=== PATIENT | male | born 1960 | race Hispanic/Latino ===

== ENCOUNTER 2018-12-04 11:47 | Emergency (ER) | payer MEDICAID ==
[2018-12-04 13:28] LABS: Basophils % (Auto) 0.4 % (0.0-1.8); Eosinophils % (Auto) 0.4 % (0.0-4.3); Hematocrit 45.3 % (35.5-45.6); Lymphocytes # (Auto) 2.1 K/mm3 (1.2-5.4); Lymphocytes % (Auto) 23.4 % (13.4-35.0); Mean Corpuscular HGB Conc 33 % (32-34); Mean Corpuscular Volume 89 fl (84-94); Monocytes # (Auto) 1.2 K/mm3 (0.0-0.8); Monocytes % (Auto) 13.3 % (0.0-7.3); Platelet Count 187 K/mm3 (140-440); Red Blood Count 5.09 M/mm3 (3.65-5.03); Red Cell Distribution Width 14.8 % (13.2-15.2)
[2018-12-04 13:42] LABS: BUN/Creatinine Ratio 25; Blood Urea Nitrogen 10 mg/dL (9-20); Hemolysis Index 27
[2018-12-04 14:24] VITALS: BP 114/79
--- NOTE | 2018-12-04 14:37 | Emergency Department Report ---
ED Seizure HPI - General Chief Complaint: Seizure Stated Complaint: SEIZURES Time Seen by Provider: 12/04/18 12:47 Source: old records reviewed Mode of arrival: Stretcher Limitations: Other - History of Present Illness Initial Comments: 58-year-old male with a past medical history of seizures, MR, thyroid problems was nonverbal presents to the hospital with one of [facility]. Patient was at the adult day care center and staff reports that he had 3 seizures back to back. Patient has a history of [place] seizures. Careta ker states when he has seizures at the [facility] they wave a wand over his vagus stimulator. The day care center does not have a wand. Patient is on multiple seizure medication and has been compliant without any missed doses. Patient also wears a helmet due to frequent seizures. On average patient has one seizure a week. Last seizure was on November 30. Survey Superintendent states that patient is at his baseline mental status. - Related Data Home Medications Medication Instructions Recorded Confirmed Last Taken Cholecalciferol (Vitamin D3) 50,000 unit PO 1XW 01/01/14 12/04/18 12/04/18 08:00 [Vitamin D3] Docusate Sodium [Colace CAP] 100 mg PO BID PRN 01/01/14 12/04/18 12/04/18 08:00 Levothyroxine [Synthroid] 25 mcg PO QAM 01/01/14 12/04/18 12/04/18 08:00 Diazepam [Valium] 5 mg PO PRN PRN 09/27/14 12/04/18 Unknown levETIRAcetam [Keppra ORAL LIQ] 2,000 mg PO BID 09/27/14 12/04/18 12/04/18 08:00 2000 Divalproex Sprinkle [Depakote 750 mg PO BID 01/02/16 12/04/18 12/04/18 08:00 Sprinkle] carBAMazepine [TEGretol Oral Liq] 8 ml PO BID 01/02/16 12/04/18 12/04/18 08:00 Alendronate Sodium [Fosamax] 70 mg PO 1XW 12/04/18 12/04/18 Unknown Atorvastatin Calcium [Lipitor] 20 mg PO DAILY 12/04/18 12/04/18 12/04/18 08:00 Fenofibrate Nanocrystallized 145 mg PO HS 12/04/18 12/04/18 12/03/18 20:00 [Fenofibrate] [place]-3S/Dha/Epa/Fish Oil [[place]-3 1,000 mg PO BID 12/04/18 12/04/18 12/04/18 08:00 Fish Oil 1,000 mg Sfgl] Onfi 10 mg PO DAILY 12/04/18 12/04/18 12/04/18 08:00 Onfi 20 mg PO BID 12/04/18 12/04/18 12/04/18 08:00 VALPROIC ACID Liq 15 ml PO Q12HR 12/04/18 12/04/18 12/04/18 08:00 Allergies Allergy/AdvReac Type Severity Reaction Status Date / Time No Known Allergies Allergy Verified 01/01/14 21:48 ED Review of Systems ROS: Stated complaint: SEIZURES Other details as noted in HPI Comment: All other systems reviewed and negative ED Past Medical Hx - Past Medical History Hx Heart Attack/AMI: (??) Hx Congestive Heart Failure: No Hx Diabetes: No Hx Seizures: Yes Hx Asthma: No Hx COPD: No Additional medical history: Gracie MADDEN problems - Surgical History Past Surgical History?: Yes Additional Surgical History: vagal nerve stimulator. - Social History Smoking Status: Never Smoker - Medications Home Medications: Home Medications Medication Instructions Recorded Confirmed Last Taken Type Cholecalciferol (Vitamin D3) 50,000 unit PO 1XW 01/01/14 12/04/18 12/04/18 08:00 History [Vitamin D3] Docusate Sodium [Colace CAP] 100 mg PO BID PRN 01/01/14 12/04/18 12/04/18 08:00 History Levothyroxine [Synthroid] 25 mcg PO QAM 01/01/14 12/04/18 12/04/18 08:00 History Diazepam [Valium] 5 mg PO PRN PRN 09/27/14 12/04/18 Unknown History levETIRAcetam [Keppra ORAL LIQ] 2,000 mg PO BID 09/27/14 12/04/18 12/04/18 08:00 History 1999 Divalproex Sprinkle [Depakote 750 mg PO BID 01/02/16 12/04/18 12/04/18 08:00 His tory Sprinkle] carBAMazepine [TEGretol Oral Liq] 8 ml PO BID 01/02/16 12/04/18 12/04/18 08:00 History Alendronate Sodium [Fosamax] 70 mg PO 1XW 12/04/18 12/04/18 Unknown History Atorvastatin Calcium [Lipitor] 20 mg PO DAILY 12/04/18 12/04/18 12/04/18 08:00 History Fenofibrate Nanocrystallized 145 mg PO HS 12/04/18 12/04/18 12/03/18 20:00 History [Fenofibrate] [place]-3S/Dha/Epa/Fish Oil [[place]-3 1,000 mg PO BID 12/04/18 12/04/18 12/04/18 08:00 History Fish Oil 1,000 mg Sfgl] Onfi 10 mg PO DAILY 12/04/18 12/04/18 12/04/18 08:00 History Onfi 20 mg PO BID 12/04/18 12/04/18 12/04/18 08:00 History VALPROIC ACID Liq 15 ml PO Q12HR 12/04/18 12/04/18 12/04/18 08:00 History ED Physical Exam - General Limitations: Other - Other Other exam information: General: No limitations, patient is alert in no acute distress Head exam: Atraumatic, normocephalic Eyes exam: Normal appearance, pupils equal reactive to light, extraocular movements intact ENT: Moist mucous membrane Neck exam: Normal inspection, full range of motion, no meningismus nontender Respiratory exam: Clear to auscultation bilateral, no wheezes, rales, crackles Cardiovascular: Normal rate and rhythm Abdomen: Soft, nondistended, and nontender, with normal bowel sounds, no rebound, or guarding Extremity: Full range of motion normal inspection no deformity Back: Normal Inspection, full range of motion, no tenderness Neurologic: Alert, makes eye contact but patient is nonverbal. Moves all extremities, sensation grossly intact Psychiatric: normal affect, normal mood Skin: Warm, dry, intact ED Course Vital Signs 12/04/18 12/04/18 12:30 14:22 Temperature 98.2 F Pulse Rate 92 H 85 Respiratory 18 19 Rate Blood Pressure 126/94 Blood Pressure 126/94 114/79 [Right] O2 Sat by Pulse 90 93 Oximetry ED Medical Decision Making - Lab Data Result diagrams: 12/04/18 13:04 12/04/18 13:04 Lab Results 12/04/18 12/04/18 12/04/18 Range/Units 13:04 13:04 13:04 WBC 9.1 (4.5-11.0) K/mm3 RBC 5.09 H (3.65-5.03) M/mm3 Hgb 15.0 (11.8-15.2) gm/dl Hct 45.3 (35.5-45.6) % MCV 89 (84-94) fl MCH 30 (28-32) pg MCHC 33 (32-34) % RDW 14.8 (13.2-15.2) % Plt Count 187 (140-440) K/mm3 Lymph % (Auto) 23.4 (13.4-35.0) % [place] % (Auto) 13.3 H (0.0-7.3) % Eos % (Auto) 0.4 (0.0-4.3) % Baso % (Auto) 0.4 (0.0-1.8) % Lymph # 2.1 (1.2-5.4) K/mm3 [place] # 1.2 H (0.0-0.8) K/mm3 Eos # 0.0 (0.0-0.4) K/mm3 Baso # 0.0 (0.0-0.1) K/mm3 Seg Neutrophils % 62.5 (40.0-70.0) % Seg Neutrophils # 5.7 (1.8-7.7) K/mm3 Sodium 138 (137-145) mmol/L Potassium 4.2 (3.6-5.0) mmol/L Chloride 101.3 (98-107) mmol/L Carbon Dioxide 23 (22-30) mmol/L Anion Gap 18 mmol/L BUN 10 (9-20) mg/dL Creatinine 0.4 L (0.8-1.5) mg/dL Estimated GFR > 60 ml/min BUN/Creatinine Ratio 25 % Glucose 109 H (75-100) mg/dL POC Glucose (70-105) Calcium 9.0 (8.4-10.2) mg/dL Magnesium 1.90 (1.7-2.3) mg/dL Valproic Acid 68.2 (50-100) ug/mL 02/14/19 Range/Units 13:04 WBC (4.5-11.0) K/mm3 RBC (3.65-5.03) M/mm3 Hgb (11.8-15.2) gm/dl Hct (35.5-45.6) % MCV (84-94) fl MCH (28-32) pg MCHC (32-34) % RDW (13.2-15.2) % Plt Count (140-440) K/mm3 Lymph % (Auto) (13.4-35.0) % [place] % (Auto) (0.0-7.3) % Eos % (Auto) (0.0-4.3) % Baso % (Auto) (0.0-1.8) % Lymph # (1.2-5.4) K/mm3 [place] # (0.0-0.8) K/mm3 Eos # (0.0-0.4) K/mm3 Baso # (0.0-0.1) K/mm3 Seg Neutrophils % (40.0-70.0) % Seg Neutrophils # (1.8-7.7) K/mm3 Sodium (137-145) mmol/L Potassium (3.6-5.0) mmol/L Chloride (98-107) mmol/L Carbon Dioxide (22-30) mmol/L Anion Gap mmol/L BUN (9-20) mg/dL Creatinine (0.8-1.5) mg/dL Estimated GFR ml/min BUN/Creatinine Ratio % Glucose (75-100) mg/dL POC Glucose 97 (70-105) Calcium (8.4-10.2) mg/dL Magnesium (1.7-2.3) mg/dL Valproic Acid (50-100) ug/mL - Medical Decision Making Patient was observed in the ED for 3 hours without any further seizure activity. Depakote level is therapeutic. Patient encouraged to continue current seizure medication and follow up with his neurologist at [facility]. - Differential Diagnosis breakthrough seizure, electrolyte abnormality, medication noncompliance Critical Care Time: No Critical care attestation.: If time is entered above; I have spent that time in minutes in the direct care of this critically ill patient, excluding procedure time. ED Disposition Clinical Impression: Seizure Disposition: DC-01 TO HOME OR SELFCARE Is pt being admited?: No Does the pt Need Aspirin: No Condition: Stable Instructions: Epilepsy (ED) Additional Instructions: Follow-up with your neurologist. Return if symptoms worsen as indicated by your discharge instructions Referrals: ANN MARIE MCGARRY [Other] - 3-5 Days your, neurologist [Other] - 3-5 Days Time of Disposition: 14:49
== END 2018-12-04 15:37 | disposition home or self-care (01) ==
LOC: ED 11:47
DX: G40.409 Other generalized epilepsy and epileptic syndromes, not intractable, without status epilepticus (principal)
CPT/HCPCS: 36415; 80048; 80164; 82962; 83735; 85025; 99284

== ENCOUNTER 2018-12-25 11:51 | Inpatient (IN) | payer MEDICAID ==
[2018-12-25] MEDS ORDERED: KEPPRA 1,000 MG/NS 0.75% 100ML 1,000 MG/100 ML BAG IV ONE (12:08)
--- NOTE | 2018-12-25 12:12 | Emergency Department Report ---
HPI - General Time Seen by Provider: 12/25/18 12:01 - HPI HPI: 50-year-old male presents to the emergency department from his adult daycare program with the report of 5 witnessed seizures. Apparently the first one occurred in the process on the way to the daycare program. The patient had 4 seizures witnessed at the daycare program between 10:15 and 11:20 AM this soraida contreras. The patient has a diagnosis of profound mental retardation as well as a seizure disorder. He is on Keppra, onfi, carbamazepine and Depakote. Unknown if he received any medications for his symptoms prior to arrival. He also appears to have a history of hypothyroidism for which she takes levothyroid. The patient is nonverbal at baseline and sometimes will communicate with his eyes or movement of his hands. He has a vagus nerve stimulator in place. ED Past Medical Hx - Past Medical History Hx Heart Attack/AMI: (??) Hx Congestive Heart Failure: No Hx Diabetes: No Hx Seizures: Yes Hx Asthma: No Hx COPD: No Additional medical history: , Gracie problems - Surgical History Additional Surgical History: vagal nerve stimulator. - Social History Smoking Status: Never Smoker - Medications Home Medications: Home Medications Medication Instructions Recorded Confirmed Last Taken Type Cholecalciferol (Vitamin D3) 50,000 unit PO 1XW 01/01/14 12/25/18 12/04/18 08:00 History [Vitamin D3] Docusate Sodium [Colace CAP] 100 mg PO BID PRN 01/01/14 12/25/18 12/04/18 08:00 History Levothyroxine [Synthroid] 25 mcg PO QAM 01/01/14 12/25/18 12/04/18 08:00 History levETIRAcetam [Keppra ORAL LIQ] 2,000 mg PO BID 09/27/14 12/25/18 12/04/18 08:00 History 2000 Divalproex Sprinkle [Depakote 750 mg PO BID 01/02/16 12/25/18 12/04/18 08:00 History Sprinkle] carBAMazepine [TEGretol Oral Liq] 8 ml PO BID 01/02/16 12/25/18 12/04/18 08:00 History Alendronate Sodium [Fosamax] 70 mg PO 1XW 12/04/18 12/25/18 Unknown History Atorvastatin Calcium [Lipitor] 20 mg PO DAILY 12/04/18 12/25/18 12/04/18 08:00 History Fenofibrate Nanocrystallized 145 mg PO HS 12/04/18 12/25/18 12/03/18 20:00 History [Fenofibrate] [place]-3S/Dha/Epa/Fish Oil [[place]-3 2,000 mg PO BID 12/04/18 12/25/18 12/04/18 08:00 History Fish Oil 1,000 mg Sfgl] Onfi 10 mg PO DAILY 12/04/18 12/25/18 12/04/18 08:00 History Onfi 20 mg PO BID 12/04/18 12/25/18 12/04/18 08:00 History VALPROIC ACID Liq 15 ml PO Q12HR 12/04/18 12/25/18 12/04/18 08:00 History diazePAM [Diazepam] 10 mg PO PRN 12/25/18 12/25/18 Unknown History ED Review of Systems ROS: Stated complaint: SEIZURES Other details as noted in HPI Comment: Unobtainable due to pts medical conditions Physical Exam - Physical Exam Physical Exam: GENERAL: The patient is well-developed well-nourished. HEENT: Normocephalic. Atraumatic. Patient has moist mucous membranes. EYES: Extraocular motions are intact. Pupils are equal and reactive to light bilaterally. NECK: Supple. Trachea is midline. CHEST/LUNGS: Clear to auscultation. There is no respiratory distress noted. HEART/CARDIOVASCULAR: Regular. There is no tachycardia. There is no obvious murmur. ABDOMEN: Abdomen is soft, nontender. Patient has normal bowel sounds. There is no abdominal distention. SKIN: Skin is warm and dry. NEURO: The patient is awake but mostly nonresponsive. Withdraws from painful stimuli. MUSCULOSKELETAL: There is no tenderness or deformity. There is no evidence of acute injury. ED Medical Decision Making - Lab Data Result diagrams: 12/25/18 14:40 12/25/18 12:43 - Radiology Data Radiology results: report reviewed PROCEDURE: CT HEAD/BRAIN WO CON TECHNIQUE: Computerized tomography of the head was performed without contrast material. CT DOSE LENGTH PRODUCT: 1048.68 mGy-cm. HISTORY: Seizure COMPARISONS: None currently available. FINDINGS: There is no evidence for acute ischemia. There is no hemorrhage. There is no midline shift. There is no hydrocephalus. There is no mass. Age appropriate benz-white matter attenuation is noted. There is no calvarial fracture. The temporal bones demonstrate aerated mastoid air cells. The middle ears appear unremarkable. Paranasal sinuses are unremarkable. Globes are intact. IMPRESSION: * No acute intracranial findings. This document is electronically signed by Jean Castelan MD., December 25 2018 01:58:18 PM ET Transcribed By: TYM Dictated By: JEAN CASTELAN MD Electronically Authenticated By: JEAN CASTELAN MD Signed Date/Time: 12/25/18 1400 - Medical Decision Making This patient presents to the emergency department after having 5 witnessed seizures prior to arrival. He does have a seizure disorder. Patient was loaded with a gram of Keppra although he is on multiple antiepileptic medications. CT scan of the head did not show any acute intracranial findings. The rest the patient's labs have been unremarkable. Thus far the patient has not had any recurrence of his seizures. However given the patient's history of profound MR and the fact that he has had 5 seizures thus far, he will be admitted to the hospital for further evaluation and treatment and was except for admission by the hospitalist. - Differential Diagnosis Epilepsy, Brain bleed, Migraine Critical Care Time: No Critical care attestation.: If time is entered above; I have spent that time in minutes in the direct care of this critically ill patient, excluding procedure time. ED Disposition Clinical Impression: Seizure, Encephalopathy Disposition: OP ADMIT IP TO THIS HOSP Is pt being admited?: Yes Condition: Fair Time of Disposition: 19:01
[2018-12-25 13:16] LABS: Alanine Aminotransferase 12 units/L (7-56); BUN/Creatinine Ratio 17; Blood Urea Nitrogen 10 mg/dL (9-20); Calcium 9.6 mg/dL (8.4-10.2); Hemolysis Index 65
[2018-12-25 13:23] LABS: Hematocrit TNR % (35.5-45.6); Hemoglobin TNR gm/dl (11.8-15.2); Mean Corpuscular Volume TNR fl (84-94); Red Blood Count TNR M/mm3 (3.65-5.03)
[2018-12-25 13:24] LABS: Basophils % (Auto) TNR % (0.0-1.8); Eosinophils % (Auto) TNR % (0.0-4.3); Lymphocytes % (Auto) TNR % (13.4-35.0); Mean Corpuscular HGB Conc TNR % (32-34); Mean Platelet Volume TNR fl (6-12); Monocytes % (Auto) TNR % (0.0-7.3); Platelet Count TNR K/mm3 (140-440); Red Cell Distribution Width TNR % (13.2-15.2)
[2018-12-25 13:25] LABS: Basophils # (Auto) TNR K/mm3 (0.0-0.1); Eosinophils # (Auto) TNR K/mm3 (0.0-0.4); Lymphocytes # (Auto) TNR K/mm3 (1.2-5.4); Monocytes # (Auto) TNR K/mm3 (0.0-0.8)
--- NOTE | 2018-12-25 14:00 | Cat Scan Report ---
PROCEDURE: CT HEAD/BRAIN WO CON TECHNIQUE: Computerized tomography of the head was performed without contrast material. CT DOSE LENGTH PRODUCT: 1048.68 mGy-cm. HISTORY: Seizure COMPARISONS: None currently available. FINDINGS: There is no evidence for acute ischemia. There is no hemorrhage. There is no midline shift. There is no hydrocephalus. There is no mass. Age appropriate benz-white matter attenuation is noted. There is no calvarial fracture. The temporal bones demonstrate aerated mastoid air cells. The middle ears appear unremarkable. Paranasal sinuses are unremarkable. Globes are intact. IMPRESSION: * No acute intracranial findings. This document is electronically signed by Jean Bojorquez MD., December 25 2018 01:58:18 PM ET
[2018-12-25 14:58] LABS: Basophils # (Auto) 0.1 K/mm3 (0.0-0.1); Basophils % (Auto) 0.5 % (0.0-1.8); Eosinophils # (Auto) 0.2 K/mm3 (0.0-0.4); Eosinophils % (Auto) 1.9 % (0.0-4.3); Hemoglobin 16.5 gm/dl (11.8-15.2); Lymphocytes # (Auto) 2.5 K/mm3 (1.2-5.4); Lymphocytes % (Auto) 21.8 % (13.4-35.0); Mean Corpuscular HGB Conc 32 % (32-34); Mean Corpuscular Volume 93 fl (84-94); Monocytes # (Auto) 1.2 K/mm3 (0.0-0.8); Monocytes % (Auto) 10.4 % (0.0-7.3); Red Blood Count 5.48 M/mm3 (3.65-5.03); Red Cell Distribution Width 15.3 % (13.2-15.2)
[2018-12-25 15:01] LABS: Platelet Count 116 K/mm3 (140-440)
[2018-12-25 15:19] LABS: Bilirubin,Urine NEG (Negative); Blood,Urine NEG (Negative); Color,Urine Straw (Yellow); Protein,Urine <15 mg/dL mg/dL (Negative); Urobilinogen,Urine < 2.0 mg/dL (<2.0); WBC,Urine < 1.0 /HPF (0.0-6.0)
[2018-12-25 15:20] LABS: RBC,Urine < 1.0 /HPF (0.0-6.0)
--- NOTE | 2018-12-25 15:20 | History and Physical Report ---
History of Present Illness Chief complaint: He had a seizure History of present illness: 58 YO Male Personal Snf Resident with Developmental Delay, Seizure Disorder, Obesity, Hypothyroidism presents to ED for evaluation. Pt is nonverbal and unable to provide history. Pt history taken from [facility] staff who is at bedside during exam and interview. Pt experienced multiple witnessed seizures today while attending his adult daycare program. Staff reports 5 witnessed seizures. EMS notified and uopn arrival the patient was found to be in distress. Pt transported to [facility]. PT seen and evaluated in ED and found to have Encephalopathy, as well as SIRS. Pt admitted to medical floor. Pt treated with empiric antibiotic therapy. No further history obtainable. Past History Past Medical History: hypothyroidism, other (Developmental Delay, ) Past Surgical History: Other (Vagal nerve stimulator) Social history: single. denies: smoking, alcohol abuse, prescription drug abuse Family history: no significant family history (reviewed) Medications and Allergies Allergies Allergy/AdvReac Type Severity Reaction Status Date / Time No Known Allergies Allergy Verified 01/01/14 21:48 Home Medications Medication Instructions Recorded Confirmed Last Taken Type Cholecalciferol (Vitamin D3) 50,000 unit PO 1XW 01/01/14 12/25/18 12/04/18 08:00 History [Vitamin D3] Docusate Sodium [Colace CAP] 100 mg PO BID PRN 01/01/14 12/25/18 12/04/18 08:00 History Levothyroxine [Synthroid] 25 mcg PO QAM 01/01/14 12/25/18 12/04/18 08:00 History levETIRAcetam [Keppra ORAL LIQ] 2,000 mg PO BID 09/27/14 12/25/18 12/04/18 08:00 History 2000 Divalproex Sprinkle [Depakote 750 mg PO BID 01/02/16 12/25/18 12/04/18 08:00 History Sprinkle] carBAMazepine [TEGretol Oral Liq] 8 ml PO BID 01/02/16 12/25/18 12/04/18 08:00 History Alendronate Sodium [Fosamax] 70 mg PO 1XW 12/04/18 12/25/18 Unknown History Atorvastatin Calcium [Lipitor] 20 mg PO DAILY 12/04/18 12/25/18 12/04/18 08:00 History Fenofibrate Nanocrystallized 145 mg PO HS 12/04/18 12/25/18 12/03/18 20:00 History [Fenofibrate] [place]-3S/Dha/Epa/Fish Oil [[place]-3 2,000 mg PO BID 12/04/18 12/25/18 12/04/18 08:00 History Fish Oil 1,000 mg Sfgl] Onfi 10 mg PO DAILY 12/04/18 12/25/18 12/04/18 08:00 History Onfi 20 mg PO BID 12/04/18 12/25/18 12/04/18 08:00 History VALPROIC ACID Liq 15 ml PO Q12HR 12/04/18 12/25/18 12/04/18 08:00 History diazePAM [Diazepam] 10 mg PO PRN 12/25/18 12/25/18 Unknown History Review of Systems ROS unobtainable: due to mental status Exam - Constitutional Vitals: Temp Pulse Resp BP Pulse Ox 89 18 139/82 95 12/25/18 12:33 12/25/18 13:18 12/25/18 12:33 12/25/18 13:18 General appearance: Present: obese, other (Nonverbal) - EENT Eyes: Present: PERRL ENT: hearing intact, clear oral mucosa - Neck Neck: Present: supple, normal ROM - Respiratory Respiratory effort: normal Respiratory: bilateral: CTA - Cardiovascular Heart Sounds: Present: S1 & S2. Absent: rub, click - Extremities Extremities: pulses symmetrical, No edema Peripheral Pulses: within normal limits - Abdominal General gastrointestinal: Present: soft, non-tender, non-distended, normal bowel sounds Male genitourinary: Present: normal - Integumentary Integumentary: Present: clear, dry - Musculoskeletal Musculoskeletal: generalized weakness - Psychiatric Psychiatric: no appropriate mood/affect, no intact judgment & insight, no memory intact - Neurologic Neurologic: moves all extremities, no gait normal Results - Labs CBC & Chem 7: 12/25/18 14:40 12/25/18 12:43 Labs: Abnormal lab results 12/25/18 12/25/18 Range/Units 12:43 14:40 WBC 11.3 H (4.5-11.0) K/mm3 RBC 5.48 H (3.65-5.03) M/mm3 Hgb 16.5 H (11.8-15.2) gm/dl Hct 51.0 H (35.5-45.6) % RDW 15.3 H (13.2-15.2) % Plt Count 116 L (140-440) K/mm3 [place] % (Auto) 10.4 H (0.0-7.3) % [place] # 1.2 H (0.0-0.8) K/mm3 Creatinine 0.6 L (0.8-1.5) mg/dL Glucose 103 H (75-100) mg/dL AST 46 H (5-40) units/L Total Creatine Kinase 50 L (55-170) units/L Assessment and Plan - Patient Problems (1) SIRS (systemic inflammatory response syndrome) Current Visit: Yes Status: Acute Plan to address problem: Empiric antibiotic therapy x1dose, repeat cbc in am, IVF resuscitation therapy, cmp, chest x ray, urinalysis (2) Encephalopathy Current Visit: Yes Status: Acute Plan to address problem: CT Head, neuro checks, supportive care. (3) Seizure Current Visit: No Status: Acute Plan to address problem: Keppra level, Tegretol level, depakote level, continue current therapy, seizure precautions. (4) DVT prophylaxis Current Visit: No Status: Acute Plan to address problem: SCD to BLE while in bed.
[2018-12-25] MEDS ORDERED: SODIUM CHLORIDE FLUSH SYRINGE 10 ML IV PRN (16:11)
[2018-12-25] MEDS ORDERED: TYLENOL PO PRN (16:11)
[2018-12-25] MEDS ORDERED: ZOFRAN IV PRN (16:11)
[2018-12-25] MEDS ORDERED: PROVENTIL IH PRN (16:11)
[2018-12-25] MEDS ORDERED: COLACE PO PRN (16:15)
[2018-12-25] MEDS ORDERED: NON-FORMULARY (Diazepam [Diazepam] 10 MG) PO SCH (16:15)
[2018-12-25] MEDS ORDERED: VALIUM PO PRN (16:51)
[2018-12-25] MEDS ORDERED: ROCEPHIN/NS 1 GM/50 ML 1 GM/50 ML BAG IV ONE (18:00)
[2018-12-25] MEDS: NACL 0.45% 1000 ML 1,000 ML IV SCH (20:23)
[2018-12-25] MEDS: SODIUM CHLORIDE FLUSH SYRINGE 10 ML IV SCH (21:37)
[2018-12-25] MEDS: DepaKENE Liq FEEDTUBE SCH (21:38)
[2018-12-25] MEDS: KEPPRA PO SCH (21:38)
[2018-12-25] MEDS: TRICOR PO SCH (21:39)
[2018-12-25] MEDS: FISH OIL PO SCH (21:39)
[2018-12-25] MEDS ORDERED: VALPROIC ACID PO SCH (22:00)
[2018-12-25] MEDS ORDERED: EPA PO SCH (22:00)
[2018-12-25] MEDS ORDERED: OMEGA PO SCH (22:00)
[2018-12-25] MEDS ORDERED: DHA PO SCH (22:00)
[2018-12-25] MEDS ORDERED: FISH OIL PO SCH (22:00)
[2018-12-25] MEDS ORDERED: ONFI 20 MG PO SCH (22:00)
[2018-12-25] MEDS ORDERED: LEVETIRACETAM 2000 MG PO SCH (22:00)
[2018-12-26] MEDS: SYNTHROID PO SCH (06:15)
[2018-12-26 06:58] LABS: BUN/Creatinine Ratio 20; Blood Urea Nitrogen 10 mg/dL (9-20); Calcium 8.6 mg/dL (8.4-10.2); Hemolysis Index 16
[2018-12-26] MEDS ORDERED: VITAMIN D2 PO SCH (10:00)
[2018-12-26] MEDS ORDERED: ONFI 10 MG PO SCH (10:00)
[2018-12-26] MEDS: FISH OIL PO SCH ×2 (10:16→22:53)
[2018-12-26] MEDS: DepaKENE Liq FEEDTUBE SCH ×2 (10:17→22:54)
[2018-12-26] MEDS: KEPPRA PO SCH ×2 (10:17→22:53)
[2018-12-26] MEDS: SODIUM CHLORIDE FLUSH SYRINGE 10 ML IV SCH ×2 (10:18→22:00)
[2018-12-26] MEDS: NACL 0.45% 1000 ML 1,000 ML IV SCH (18:31)
--- NOTE | 2018-12-26 19:52 | Progress Note ---
Assessment and Plan Assessment and plan: -- Encephalopathy Current Visit: Yes Status: Acute Plan to address problem: due to seizures , CT head negative for any acute abnormalities Neuro checks and supportive care -- Seizure Current Visit: No Status: Acute Plan to address problem: Seizure precautions , continue current antiepileptic medications Check levels , neurology consult if needed Consider EEG EEG --SIRS (systemic inflammatory response syndrome) Current Visit: Yes Status: Acute Plan to address problem: Empiric antibiotic therapy x1dose, IVF resuscitation therapy, Supportive care -- DVT prophylaxis Current Visit: No Status: Acute Plan to address problem: SCD to BLE while in bed. History Interval history: Patient seen and examined medical records reviewed Patient is alert and awake minimally communicative Admitted with seizures, no new episodes of seizures since admission Vital signs reviewed Hospitalist Physical - Constitutional Vitals: Temp Pulse Resp BP Pulse Ox 97.5 F L 72 16 122/81 92 12/26/18 05:26 12/26/18 05:26 12/26/18 05:26 12/26/18 05:26 12/26/18 10:00 General appearance: Present: no acute distress, well-nourished, obese, other (Nonverbal) - EENT Eyes: Present: PERRL, EOM intact - Neck Neck: Present: supple, normal ROM - Respiratory Respiratory effort: normal Respiratory: bilateral: diminished, negative: rales, rhonchi, wheezing - Cardiovascular Rhythm: regular Heart Sounds: Present: S1 & S2 - Extremities Extremities: no ischemia, No edema - Abdominal General gastrointestinal: soft, non-tender, non-distended, normal bowel sounds - Integumentary Integumentary: Present: clear, warm - Psychiatric Psychiatric: appropriate mood/affect, other (noncommunicative) - Neurologic Neurologic: moves all extremities (noncommunicative) Results - Labs CBC & Chem 7: 12/25/18 14:40 12/26/18 06:20 Labs: Laboratory Last Values WBC 11.3 K/mm3 (4.5-11.0) H 12/25/18 14:40 RBC 5.48 M/mm3 (3.65-5.03) H 12/25/18 14:40 Hgb 16.5 gm/dl (11.8-15.2) H 12/25/18 14:40 Hct 51.0 % (35.5-45.6) H 12/25/18 14:40 MCV 93 fl (84-94) 12/25/18 14:40 MCH 30 pg (28-32) 12/25/18 14:40 MCHC 32 % (32-34) 12/25/18 14:40 RDW 15.3 % (13.2-15.2) H 12/25/18 14:40 Plt Count 116 K/mm3 (140-440) L 12/25/18 14:40 Lymph % (Auto) 21.8 % (13.4-35.0) 12/25/18 14:40 [place] % (Auto) 10.4 % (0.0-7.3) H 12/25/18 14:40 Eos % (Auto) 1.9 % (0.0-4.3) 12/25/18 14:40 Baso % (Auto) 0.5 % (0.0-1.8) 12/25/18 14:40 Lymph # 2.5 K/mm3 (1.2-5.4) 12/25/18 14:40 [place] # 1.2 K/mm3 (0.0-0.8) H 12/25/18 14:40 Eos # 0.2 K/mm3 (0.0-0.4) 12/25/18 14:40 Baso # 0.1 K/mm3 (0.0-0.1) 12/25/18 14:40 Seg Neutrophils % 65.4 % (40.0-70.0) 12/25/18 14:40 Seg Neutrophils # 7.4 K/mm3 (1.8-7.7) 12/25/18 14:40 Sodium 140 mmol/L (137-145) 12/26/18 06:20 Potassium 4.3 mmol/L (3.6-5.0) 12/26/18 06:20 Chloride 104.2 mmol/L (98-107) 12/26/18 06:20 Carbon Dioxide 25 mmol/L (22-30) 12/26/18 06:20 Anion Gap 15 mmol/L 12/26/18 06:20 BUN 10 mg/dL (9-20) 12/26/18 06:20 Creatinine 0.5 mg/dL (0.8-1.5) L 12/26/18 06:20 Estimated GFR > 60 ml/min 12/26/18 06:20 BUN/Creatinine Ratio 20 % 12/26/18 06:20 Glucose 94 mg/dL (75-100) 12/26/18 06:20 Calcium 8.6 mg/dL (8.4-10.2) 12/26/18 06:20 Total Bilirubin 0.20 mg/dL (0.1-1.2) 12/25/18 12:43 AST 46 units/L (5-40) H 12/25/18 12:43 ALT 12 units/L (7-56) 12/25/18 12:43 Alkaline Phosphatase 104 units/L (35-129) 12/25/18 12:43 Total Creatine Kinase 50 units/L (55-170) L 12/25/18 12:43 Troponin T < 0.010 ng/mL (0.00-0.029) 12/25/18 12:43 Total Protein 7.6 g/dL (6.3-8.2) 12/25/18 12:43 Albumin 4.0 g/dL (3.9-5) 12/25/18 12:43 Albumin/Globulin Ratio 1.1 % 12/25/18 12:43 TSH 3.130 mlU/mL (0.270-4.200) 12/25/18 12:43 Urine Color Straw (Yellow) 12/25/18 15:02 Urine Turbidity Clear (Clear) 12/25/18 15:02 Urine pH 7.0 (5.0-7.0) 12/25/18 15:02 Ur Specific [place] 1.006 (1.003-1.030) 12/25/18 15:02 Urine Protein <15 mg/dl mg/dL (Negative) 12/25/18 15:02 Urine Glucose (UA) Neg mg/dL (Negative) 12/25/18 15:02 Urine Ketones Neg mg/dL (Negative) 12/25/18 15:02 Urine Blood Neg (Negative) 12/25/18 15:02 Urine Nitrite Neg (Negative) 12/25/18 15:02 Urine Bilirubin Neg (Negative) 12/25/18 15:02 Urine Urobilinogen < 2.0 mg/dL (<2.0) 12/25/18 15:02 Ur Leukocyte Esterase Neg (Negative) 12/25/18 15:02 Urine WBC (Auto) < 1.0 /HPF (0.0-6.0) 12/25/18 15:02 Urine RBC (Auto) < 1.0 /HPF (0.0-6.0) 12/25/18 15:02 Valproic Acid 80.1 ug/mL (50-100) 12/25/18 12:43 Carbamazepine 4.5 ug/mL (4-12) 12/25/18 12:43
[2018-12-26] MEDS: TRICOR PO SCH (22:53)
[2018-12-26] MEDS: ONFI PO SCH (22:53)
[2018-12-27 06:14] LABS: Hematocrit 41.4 % (35.5-45.6); Mean Corpuscular HGB Conc 34 % (32-34); Mean Corpuscular Volume 90 fl (84-94); Platelet Count 221 K/mm3 (140-440); Red Blood Count 4.62 M/mm3 (3.65-5.03); Red Cell Distribution Width 14.5 % (13.2-15.2)
[2018-12-27 06:34] LABS: BUN/Creatinine Ratio 24; Blood Urea Nitrogen 12 mg/dL (9-20); Calcium 8.5 mg/dL (8.4-10.2); Hemolysis Index 10
[2018-12-27] MEDS: SYNTHROID PO SCH (06:44)
--- NOTE | 2018-12-27 08:13 | Progress Note ---
Assessment and Plan Assessment and plan: --Metabolic and Neuropathy; probably secondary to postictal stage An underlying disease process, more alert and thick Probably back to baseline, supportive care --Seizures episodes; continue current antiepileptic medications No new seizures since admission, seizure precautions --Mental retardation; supportive care --SIRS; improved --Hypothyroidism; continue Synthroid --DVT prophylaxis; heparin, SCDs Closely monitor the patient and adjust management as needed Possible discharge back to longterm/intermediate in 1-2 days if stable Plan of care reviewed with the patient's nurse Patient is spitting out the medications, we will change Keppra to IV twice a day dose History Interval history: Patient seen and examined this morning medical records reviewed Admitted with seizure episodes, on multiple antiepileptic medications No new seizures since admission Patient is alert and awake noncommunicative Vital signs reviewed Reports that patient is spitting out the medications Hospitalist Physical - Constitutional Vitals: Temp Pulse Resp BP Pulse Ox 98.3 F 81 20 128/73 92 12/27/18 04:23 12/27/18 04:23 12/27/18 04:23 12/27/18 04:23 12/27/18 04:23 General appearance: Present: no acute distress, well-nourished, obese, other (Nonverbal) - EENT Eyes: Present: PERRL, EOM intact - Neck Neck: Present: supple, normal ROM - Respiratory Respiratory effort: normal Respiratory: bilateral: diminished, negative: rales, rhonchi, wheezing - Cardiovascular Rhythm: regular Heart Sounds: Present: S1 & S2 - Extremities Extremities: no ischemia, No edema - Abdominal General gastrointestinal: soft, non-tender, non-distended, normal bowel sounds - Integumentary Integumentary: Present: clear, warm - Psychiatric Psychiatric: appropriate mood/affect, cooperative - Neurologic Neurologic: CNII-XII intact, moves all extremities Results - Labs CBC & Chem 7: 12/27/18 05:55 12/27/18 05:55 Labs: Laboratory Last Values WBC 6.9 K/mm3 (4.5-11.0) 12/27/18 05:55 RBC 4.62 M/mm3 (3.65-5.03) 12/27/18 05:55 Hgb 14.0 gm/dl (11.8-15.2) 12/27/18 05:55 Hct 41.4 % (35.5-45.6) D 12/27/18 05:55 MCV 90 fl (84-94) 12/27/18 05:55 MCH 30 pg (28-32) 12/27/18 05:55 MCHC 34 % (32-34) 12/27/18 05:55 RDW 14.5 % (13.2-15.2) 12/27/18 05:55 Plt Count 221 K/mm3 (140-440) 12/27/18 05:55 Lymph % (Auto) 21.8 % (13.4-35.0) 12/25/18 14:40 [place] % (Auto) 10.4 % (0.0-7.3) H 12/25/18 14:40 Eos % (Auto) 1.9 % (0.0-4.3) 12/25/18 14:40 Baso % (Auto) 0.5 % (0.0-1.8) 12/25/18 14:40 Lymph # 2.5 K/mm3 (1.2-5.4) 12/25/18 14:40 [place] # 1.2 K/mm3 (0.0-0.8) H 12/25/18 14:40 Eos # 0.2 K/mm3 (0.0-0.4) 12/25/18 14:40 Baso # 0.1 K/mm3 (0.0-0.1) 12/25/18 14:40 Seg Neutrophils % 65.4 % (40.0-70.0) 12/25/18 14:40 Seg Neutrophils # 7.4 K/mm3 (1.8-7.7) 12/25/18 14:40 Sodium 139 mmol/L (137-145) 12/27/18 05:55 Potassium 4.2 mmol/L (3.6-5.0) 12/27/18 05:55 Chloride 103.7 mmol/L (98-107) 12/27/18 05:55 Carbon Dioxide 24 mmol/L (22-30) 12/27/18 05:55 Anion Gap 16 mmol/L 12/27/18 05:55 BUN 12 mg/dL (9-20) 12/27/18 05:55 Creatinine 0.5 mg/dL (0.8-1.5) L 12/27/18 05:55 Estimated GFR > 60 ml/min 12/27/18 05:55 BUN/Creatinine Ratio 24 % 12/27/18 05:55 Glucose 98 mg/dL (75-100) 12/27/18 05:55 Calcium 8.5 mg/dL (8.4-10.2) 12/27/18 05:55 Phosphorus 3.40 mg/dL (2.5-4.5) 12/27/18 05:55 Magnesium 2.00 mg/dL (1.7-2.3) 12/27/18 05:55 Total Bilirubin 0.20 mg/dL (0.1-1.2) 12/25/18 12:43 AST 46 units/L (5-40) H 12/25/18 12:43 ALT 12 units/L (7-56) 12/25/18 12:43 Alkaline Phosphatase 104 units/L (35-129) 12/25/18 12:43 Total Creatine Kinase 50 units/L (55-170) L 12/25/18 12:43 Troponin T < 0.010 ng/mL (0.00-0.029) 12/25/18 12:43 Total Protein 7.6 g/dL (6.3-8.2) 12/25/18 12:43 Albumin 4.0 g/dL (3.9-5) 12/25/18 12:43 Albumin/Globulin Ratio 1.1 % 12/25/18 12:43 TSH 3.130 mlU/mL (0.270-4.200) 12/25/18 12:43 Urine Color Straw (Yellow) 12/25/18 15:02 Urine Turbidity Clear (Clear) 12/25/18 15:02 Urine pH 7.0 (5.0-7.0) 12/25/18 15:02 Ur Specific [place] 1.006 (1.003-1.030) 12/25/18 15:02 Urine Protein <15 mg/dl mg/dL (Negative) 12/25/18 15:02 Urine Glucose (UA) Neg mg/dL (Negative) 12/25/18 15:02 Urine Ketones Neg mg/dL (Negative) 12/25/18 15:02 Urine Blood Neg (Negative) 12/25/18 15:02 Urine Nitrite Neg (Negative) 12/25/18 15:02 Urine Bilirubin Neg (Negative) 12/25/18 15:02 Urine Urobilinogen < 2.0 mg/dL (<2.0) 12/25/18 15:02 Ur Leukocyte Esterase Neg (Negative) 12/25/18 15:02 Urine WBC (Auto) < 1.0 /HPF (0.0-6.0) 12/25/18 15:02 Urine RBC (Auto) < 1.0 /HPF (0.0-6.0) 12/25/18 15:02 Valproic Acid 80.1 ug/mL (50-100) 12/25/18 12:43 Carbamazepine 4.5 ug/mL (4-12) 12/25/18 12:43
[2018-12-27] MEDS: DepaKENE Liq FEEDTUBE SCH ×3 (11:20→21:32)
[2018-12-27] MEDS: KEPPRA PO SCH (11:21)
[2018-12-27] MEDS: FISH OIL PO SCH ×2 (11:22→21:11)
[2018-12-27] MEDS: SODIUM CHLORIDE FLUSH SYRINGE 10 ML IV SCH ×2 (11:23→21:22)
[2018-12-27 11:46] LABS: Anisocytosis 1+; Band Neutrophils # (Manual) 0.1 K/mm3; Basophils % (Manual) 0 % (0.0-1.8); Platelet Estimate Consistent w Auto; Total Cells Counted 100
[2018-12-27] MEDS: ONFI PO SCH (14:26)
[2018-12-27] MEDS: NACL 0.45% 1000 ML 1,000 ML IV SCH (18:21)
[2018-12-27] MEDS: TRICOR PO SCH (21:11)
[2018-12-27] MEDS: KEPPRA 2,000 MG in NACL 0.9% 100 ML IV SCH (21:11)
[2018-12-28] MEDS: SYNTHROID PO SCH ×2 (06:36→06:40)
[2018-12-28] MEDS: ONFI PO SCH ×3 (06:36→22:52)
[2018-12-28] MEDS: KEPPRA 2,000 MG in NACL 0.9% 100 ML IV SCH ×2 (11:31→22:52)
[2018-12-28] MEDS: DepaKENE Liq FEEDTUBE SCH ×2 (11:32→22:52)
[2018-12-28] MEDS: FISH OIL PO SCH ×2 (11:33→22:53)
[2018-12-28] MEDS: SODIUM CHLORIDE FLUSH SYRINGE 10 ML IV SCH ×2 (11:34→22:53)
--- NOTE | 2018-12-28 12:24 | Progress Note ---
Assessment and Plan Assessment and plan: --Metabolic encephalopathy; probably secondary to postictal stage An underlying disease process, more alert and awake today Probably back to baseline, supportive care --Seizures episodes; continue current antiepileptic medications No new seizures since admission, seizure precautions --Mental retardation; supportive care --SIRS; improved --Hypothyroidism; continue Synthroid --DVT prophylaxis; heparin, SCDs Closely monitor the patient and adjust management as needed Possible discharge back to [facility]iary/correction in 1-2 days if stable Plan of care reviewed with the patient's nurse Patient is spitting out the medications, we will change Keppra to IV twice a day dose Possible discharge back to the SNF/correction tomorrow if stable Plan of care is reviewed with the patient's nurse History Interval history: Patient seen and examined medical records reviewed New events reported by the nursing staff No new episodes of seizures Patient sometimes spits out the medications Keppra changed to IV Patient is not in acute distress vital signs noted Hospitalist Physical - Constitutional Vitals: Temp Pulse Resp BP Pulse Ox 98.3 F 67 20 108/72 94 12/28/18 05:33 12/28/18 05:33 12/28/18 05:33 12/28/18 05:33 12/28/18 05:33 General appearance: Present: no acute distress, well-nourished, obese, other (Nonverbal) - EENT Eyes: Present: PERRL, EOM intact - Neck Neck: Present: supple, normal ROM - Respiratory Respiratory effort: normal Respiratory: bilateral: diminished, rhonchi, negative: rales, wheezing - Cardiovascular Rhythm: regular Heart Sounds: Present: S1 & S2 - Extremities Extremities: no ischemia, No edema - Abdominal General gastrointestinal: soft, non-tender, non-distended, normal bowel sounds - Integumentary Integumentary: Present: clear, warm - Psychiatric Psychiatric: appropriate mood/affect, cooperative, other (minimally communicative) - Neurologic Neurologic: other (residual weakness) Results - Labs CBC & Chem 7: 12/27/18 05:55 12/27/18 05:55 Labs: Laboratory Last Values WBC 6.9 K/mm3 (4.5-11.0) 12/27/18 05:55 RBC 4.62 M/mm3 (3.65-5.03) 12/27/18 05:55 Hgb 14.0 gm/dl (11.8-15.2) 12/27/18 05:55 Hct 41.4 % (35.5-45.6) D 12/27/18 05:55 MCV 90 fl (84-94) 12/27/18 05:55 MCH 30 pg (28-32) 12/27/18 05:55 MCHC 34 % (32-34) 12/27/18 05:55 RDW 14.5 % (13.2-15.2) 12/27/18 05:55 Plt Count 221 K/mm3 (140-440) 12/27/18 05:55 Lymph % (Auto) 21.8 % (13.4-35.0) 12/25/18 14:40 [place] % (Auto) 10.4 % (0.0-7.3) H 12/25/18 14:40 Eos % (Auto) 1.9 % (0.0-4.3) 12/25/18 14:40 Baso % (Auto) 0.5 % (0.0-1.8) 12/25/18 14:40 Lymph # 2.5 K/mm3 (1.2-5.4) 12/25/18 14:40 [place] # 1.2 K/mm3 (0.0-0.8) H 12/25/18 14:40 Eos # 0.2 K/mm3 (0.0-0.4) 12/25/18 14:40 Baso # 0.1 K/mm3 (0.0-0.1) 12/25/18 14:40 Add Manual Diff Complete 12/27/18 05:55 Total Counted 100 12/27/18 05:55 Seg Neutrophils % 65.4 % (40.0-70.0) 12/25/18 14:40 Seg Neuts % (Manual) 39.0 % (40.0-70.0) L 12/27/18 05:55 Band Neutrophils % 1.0 % 12/27/18 05:55 Lymphocytes % (Manual) 46.0 % (13.4-35.0) H 12/27/18 05:55 Reactive Lymphs % (Man) 0 % 12/27/18 05:55 Monocytes % (Manual) 11.0 % (0.0-7.3) H 12/27/18 05:55 Eosinophils % (Manual) 3.0 % (0.0-4.3) 12/27/18 05:55 Basophils % (Manual) 0 % (0.0-1.8) 12/27/18 05:55 Metamyelocytes % 0 % 12/27/18 05:55 Myelocytes % 0 % 12/27/18 05:55 Promyelocytes % 0 % 12/27/18 05:55 Blast Cells % 0 % 12/27/18 05:55 Nucleated RBC % Not Reportable 12/27/18 05:55 Seg Neutrophils # 7.4 K/mm3 (1.8-7.7) 12/25/18 14:40 Seg Neutrophils # Man 2.7 K/mm3 (1.8-7.7) 12/27/18 05:55 Band Neutrophils # 0.1 K/mm3 12/27/18 05:55 Lymphocytes # (Manual) 3.2 K/mm3 (1.2-5.4) 12/27/18 05:55 Abs React Lymphs (Man) 0.0 K/mm3 12/27/18 05:55 Monocytes # (Manual) 0.8 K/mm3 (0.0-0.8) 12/27/18 05:55 Eosinophils # (Manual) 0.2 K/mm3 (0.0-0.4) 12/27/18 05:55 Basophils # (Manual) 0.0 K/mm3 (0.0-0.1) 12/27/18 05:55 Metamyelocytes # 0.0 K/mm3 12/27/18 05:55 Myelocytes # 0.0 K/mm3 12/27/18 05:55 Promyelocytes # 0.0 K/mm3 12/27/18 05:55 Blast Cells # 0.0 K/mm3 12/27/18 05:55 WBC Morphology Not Reportable 12/27/18 05:55 Hypersegmented Neuts Not Reportable 12/27/18 05:55 Hyposegmented Neuts Not Reportable 12/27/18 05:55 Hypogranular Neuts Not Reportable 12/27/18 05:55 Smudge Cells Not Reportable 12/27/18 05:55 Toxic Granulation Not Reportable 12/27/18 05:55 Toxic Vacuolation Not Reportable 12/27/18 05:55 Dohle Bodies Not Reportable 12/27/18 05:55 Pelger-Huet Anomaly Not Reportable 12/27/18 05:55 Izzy Rods Not Reportable 12/27/18 05:55 Platelet Estimate Consistent w auto 12/27/18 05:55 Clumped Platelets Not Reportable 12/27/18 05:55 Plt Clumps, EDTA Not Reportable 12/27/18 05:55 Large Platelets Not Reportable 12/27/18 05:55 Giant Platelets Not Reportable 12/27/18 05:55 Platelet Satelliting Not Reportable 12/27/18 05:55 Plt Morphology Comment Not Reportable 12/27/18 05:55 RBC Morphology Not Reportable 12/27/18 05:55 Dimorphic RBCs Not Reportable 12/27/18 05:55 Polychromasia Not Reportable 12/27/18 05:55 Hypochromasia Not Reportable 12/27/18 05:55 Poikilocytosis Not Reportable 12/27/18 05:55 Anisocytosis 1+ 12/27/18 05:55 Microcytosis Not Reportable 12/27/18 05:55 Macrocytosis Not Reportable 12/27/18 05:55 Spherocytes Not Reportable 12/27/18 05:55 Pappenheimer Bodies Not Reportable 12/27/18 05:55 Sickle Cells Not Reportable 12/27/18 05:55 Target Cells Not Reportable 12/27/18 05:55 Tear Drop Cells Not Reportable 12/27/18 05:55 Ovalocytes Not Reportable 12/27/18 05:55 Helmet Cells Not Reportable 12/27/18 05:55 [place] Bodies Not Reportable 12/27/18 05:55 [place] Rings Not Reportable 12/27/18 05:55 [place] Cells Not Reportable 12/27/18 05:55 Bite Cells Not Reportable 12/27/18 05:55 Crenated Cell Not Reportable 12/27/18 05:55 Elliptocytes Not Reportable 12/27/18 05:55 Acanthocytes (Spur) Not Reportable 12/27/18 05:55 Rouleaux Not Reportable 12/27/18 05:55 Hemoglobin C Crystals Not Reportable 12/27/18 05:55 Schistocytes Not Reportable 12/27/18 05:55 Malaria parasites Not Reportable 12/27/18 05:55 Brendan Bodies Not Reportable 12/27/18 05:55 Hem Pathologist Commnt No 12/27/18 05:55 Sodium 139 mmol/L (137-145) 12/27/18 05:55 Potassium 4.2 mmol/L (3.6-5.0) 12/27/18 05:55 Chloride 103.7 mmol/L (98-107) 12/27/18 05:55 Carbon Dioxide 24 mmol/L (22-30) 12/27/18 05:55 Anion Gap 16 mmol/L 12/27/18 05:55 BUN 12 mg/dL (9-20) 12/27/18 05:55 Creatinine 0.5 mg/dL (0.8-1.5) L 12/27/18 05:55 Estimated GFR > 60 ml/min 12/27/18 05:55 BUN/Creatinine Ratio 24 % 12/27/18 05:55 Glucose 98 mg/dL (75-100) 12/27/18 05:55 Calcium 8.5 mg/dL (8.4-10.2) 12/27/18 05:55 Phosphorus 3.40 mg/dL (2.5-4.5) 12/27/18 05:55 Magnesium 2.00 mg/dL (1.7-2.3) 12/27/18 05:55 Total Bilirubin 0.20 mg/dL (0.1-1.2) 12/25/18 12:43 AST 46 units/L (5-40) H 12/25/18 12:43 ALT 12 units/L (7-56) 12/25/18 12:43 Alkaline Phosphatase 104 units/L (35-129) 12/25/18 12:43 Total Creatine Kinase 50 units/L (55-170) L 12/25/18 12:43 Troponin T < 0.010 ng/mL (0.00-0.029) 12/25/18 12:43 Total Protein 7.6 g/dL (6.3-8.2) 12/25/18 12:43 Albumin 4.0 g/dL (3.9-5) 12/25/18 12:43 Albumin/Globulin Ratio 1.1 % 12/25/18 12:43 TSH 3.130 mlU/mL (0.270-4.200) 12/25/18 12:43 Urine Color Straw (Yellow) 12/25/18 15:02 Urine Turbidity Clear (Clear) 12/25/18 15:02 Urine pH 7.0 (5.0-7.0) 12/25/18 15:02 Ur Specific [place] 1.006 (1.003-1.030) 12/25/18 15:02 Urine Protein <15 mg/dl mg/dL (Negative) 12/25/18 15:02 Urine Glucose (UA) Neg mg/dL (Negative) 12/25/18 15:02 Urine Ketones Neg mg/dL (Negative) 12/25/18 15:02 Urine Blood Neg (Negative) 12/25/18 15:02 Urine Nitrite Neg (Negative) 12/25/18 15:02 Urine Bilirubin Neg (Negative) 12/25/18 15:02 Urine Urobilinogen < 2.0 mg/dL (<2.0) 12/25/18 15:02 Ur Leukocyte Esterase Neg (Negative) 12/25/18 15:02 Urine WBC (Auto) < 1.0 /HPF (0.0-6.0) 12/25/18 15:02 Urine RBC (Auto) < 1.0 /HPF (0.0-6.0) 12/25/18 15:02 Valproic Acid 80.1 ug/mL (50-100) 12/25/18 12:43 Carbamazepine 4.5 ug/mL (4-12) 12/25/18 12:43
[2018-12-28] MEDS: NACL 0.45% 1000 ML 1,000 ML IV SCH (18:03)
[2018-12-28] MEDS: TRICOR PO SCH (22:53)
[2018-12-29] MEDS ORDERED: FOSAMAX PO SCH (07:00)
[2018-12-29] MEDS: SYNTHROID PO SCH (07:24)
[2018-12-29] MEDS: ONFI PO SCH (10:00)
[2018-12-29] MEDS: FISH OIL PO SCH (10:03)
[2018-12-29] MEDS: KEPPRA 2,000 MG in NACL 0.9% 100 ML IV SCH (10:04)
[2018-12-29] MEDS: SODIUM CHLORIDE FLUSH SYRINGE 10 ML IV SCH (10:05)
[2018-12-29] MEDS: DepaKENE Liq FEEDTUBE SCH (10:11)
[2018-12-29 12:45] VITALS: BP 124/71
--- NOTE | 2018-12-29 13:01 | Discharge Summary ---
Providers - Providers Date of Admission: 12/25/18 16:11 Date of discharge: 12/29/18 Attending physician: DESTINY JEWELL [facility] Reason for admission: Seizures Condition: Fair Pertinent studies: CT head: no acute abnormality Hospital course: 58 yr old male patient a personal residential resident with multiple med problems including seizure disorder was admitted through ER with recurrent seizure episodes. Placed on seizure precautions, managed with multiple seizure medications. Patient didnot have new episodes of seizures since admission. Today pt is comfortable,no new issues,vital signs stable Physial exam prior discharge is unremarkable. Patoent is stable at discharge. Discharge Diagnosis: --Seizures episodes; continue current antiepileptic medications No new seizures since admission, seizure precautions --Metabolic encephalopathy; probably secondary to postictal stage more alert and awake today, back to baseline per customer care manager --Mental retardation; supportive care --SIRS; improved --Hypothyroidism; continue Synthroid Disposition: DC- TO HOME OR SELFCARE Time spent for discharge: 32 min Core Measure Documentation - Palliative Care Palliative Care/ Comfort Measures: Not Applicable - Core Measures Any of the following diagnoses?: none Exam - Constitutional Vitals: Temp Pulse Resp BP Pulse Ox 98.3 F 78 16 124/71 91 12/29/18 11:33 12/29/18 11:33 12/29/18 11:33 12/29/18 11:33 12/29/18 11:33 General appearance: Present: no acute distress, well-nourished - EENT Eyes: Present: PERRL, EOM intact - Neck Neck: Present: supple, normal ROM - Respiratory Respiratory effort: normal Respiratory: bilateral: diminished, negative: rales, rhonchi, wheezing - Cardiovascular Rhythm: regular Heart Sounds: Present: S1 & S2 - Extremities Extremities: no ischemia, No edema - Abdominal General gastrointestinal: Present: soft, non-tender, non-distended, normal bowel sounds - Integumentary Integumentary: Present: clear, warm - Musculoskeletal Musculoskeletal: generalized weakness - Psychiatric Psychiatric: other (noncommunicative) - Neurologic Neurologic: other (noncommunicative) Plan Activity: advance as tolerated, fall precautions, other (sezure precautions) Diet: advance as tolerated Additional Instructions: Fall precautions. Seizure precautions. Current all home medications. No new prescriptions needed. Follow-up private neurologist per schedule Follow up with: [facility], MD [Primary Care Provider] - 7 Days
[2018-12-29] MEDS ORDERED: CLOBAZAM PO SCH (14:00)
== END 2018-12-29 18:40 | disposition home or self-care (01) | DRG 100 ==
LOC: ED 11:51 → 3A 16:11
PROVIDERS: ADMIT Internal Medicine; ATTEND Internal Medicine
DX: G40.909 Epilepsy, unspecified, not intractable, without status epilepticus (principal); G93.41 Metabolic encephalopathy; R65.10 Systemic inflammatory response syndrome (SIRS) of non-infectious origin without acute organ dysfunction; F79 Unspecified intellectual disabilities; E03.9 Hypothyroidism, unspecified; E66.9 Obesity, unspecified; Z68.34 Body mass index [BMI] 34.0-34.9, adult; Z79.899 Other long term (current) drug therapy
CPT/HCPCS: 36415; 70450; 80048; 80053; 80156; 80164; 81001; 82550; 83735; 84100; 84443; 84484; 85007; 85025; 93005; 93010; 96365; G0378; A9270-GY; J0696; J1953; J7030